=== PATIENT | female | born 1990 | race Two or more races ===

== ENCOUNTER 2016-11-06 08:39 | Emergency (ER) | payer OTHER ==
[~2016-11-06] VITALS: Ht 172.7 cm; Wt 77.1 kg
--- NOTE | 2016-11-06 09:00 | NUR ---
PT BIB FROM [facility] FOR ABD PAIN/ CRAMPS, 5 MONTHS - WITH NAUSEA. NOTED ANXIOUS. VSS. SEEN BY MD FOR EVAL. SAFETY AND COMFORT MEASURES PROVIDED. WILL MONITOR.
[2016-11-06] MEDS ORDERED: ONDANSETRON 4 MG TAB.RAPDIS ONE (10:01)
[2016-11-06] MEDS: ONDANSETRON 4 MG TAB.RAPDIS SL ONE (10:06)
[2016-11-06 10:11] LABS: BASOPHILS # (AUTO) 0.1 /CMM (0.0-0.2); BASOPHILS % (AUTO) 0.5 % (0.0-2.0); EOSINOPHILS # (AUTO) 0.1 /CMM (0.0-0.7); EOSINOPHILS % (AUTO) 0.7 % (0.0-6.0); HEMATOCRIT 29 % (33-45); HEMOGLOBIN 10.4 g/dL (11.5-14.8); LYMPHOCYTES # (AUTO) 1.4 /CMM (0.8-4.8); LYMPHOCYTES % (AUTO) 12.5 % (20.0-44.0); MEAN CORPUSCULAR HEMOGLOBIN 30 PG (26.0-33.0); MEAN CORPUSCULAR HGB CONC 35 g/dl (31.0-36.0); MEAN CORPUSCULAR VOLUME 86 fL (82-100); MONOCYTES # (AUTO) 0.7 /CMM (0.1-1.30); NEUTROPHILS % (AUTO) 80.3 % (43.0-81.0); PLATELET COUNT (AUTO) 269 /CMM (150-450); RDW COEFFICIENT OF VARIATION 13.9 (11.5-15.0); RED BLOOD CELL COUNT(AUTO) 3.42 MIL/uL (4.0-5.2); WHITE BLOOD COUNT (AUTO) 11.3 K/uL (4.3-11.0)
--- NOTE | 2016-11-06 10:15 | NUR ---
UNABLE TO GET IV ACCESS. MADE AWARE.
[2016-11-06] MEDS ORDERED: ONDANSETRON HCL/PF 4 MG/2 ML VIAL ONE (10:20)
[2016-11-06] MEDS ORDERED: IV SET PRIMARY 1 EA INFUS.SET MC ONE (10:20)
[2016-11-06] MEDS ORDERED: clonazePAM 1 MG TABLET ONE (10:20)
[2016-11-06] MEDS ORDERED: IV NS 0.9% 1,000 ML ONE (10:21)
[2016-11-06 10:25] LABS: INR 0.94 (0.87-1.13); PROTHROMBIN TIME 9.8 SECS (9.5-12.7)
[2016-11-06 10:26] LABS: APPEARANCE,URINE Clear (CLEAR); BLOOD, URINE Negative Ery/uL (NEGATIVE); COLOR,URINE Yellow (YELLOW); KETONES,URINE 40 (NEGATIVE); LEUKOCYTE ESTERASE ,URINE Negative (NEGATIVE); NITRITE, URINE Negative (NEGATIVE); PROTEIN,URINE 30 mg/dl (NEGATIVE); UGLUCOSE Negative (NEGATIVE)
[2016-11-06 10:32] LABS: BILIRUBIN,URINE SMALL (NEGATIVE)
--- NOTE | 2016-11-06 10:33 | NUR ---
DR ANGELICA MORIN
[2016-11-06 10:38] LABS: ADD URINE CULTURE YES; BACTERIA,URINE 2+ /HPF (None Seen); RBC,URINE 0-2 /HPF (0-2); SQUAMOUS EPITHELIAL CELL,UR Moderate /HPF (None Seen)
[2016-11-06] MEDS: clonazePAM 1 MG TABLET PO ONE (10:42)
[2016-11-06] MEDS: IV NS 0.9% 1,000 ML BAG IV ONE (11:13)
[2016-11-06] MEDS: ONDANSETRON HCL/PF 4 MG/2 ML VIAL IVP ONE (11:13)
--- NOTE | 2016-11-06 11:16 | NUR ---
Patient does not wish to proceed with medical care recommended by . Patient given information related to possible complications, up to and including , which could occur as a result of leaving the hospital at this time. Patient verbalizes understanding of risks involved due to leaving against medical advice. Patient has signed AMA form.
[2016-11-06 11:18] VITALS: BP 118/78
== END 2016-11-06 11:24 | disposition left against medical advice (07) ==
LOC: ER 08:40
DX: O99.342 Other mental disorders complicating pregnancy, second trimester (principal); F11.23 Opioid dependence with withdrawal; R00.0 Tachycardia, unspecified; R10.84 Generalized abdominal pain; J45.909 Unspecified asthma, uncomplicated; Z88.0 Allergy status to penicillin; Z3A.22 22 weeks gestation of pregnancy
CPT/HCPCS: 36415; 76805-TC; 81000-TC; 84702-TC; 85025-TC; 85730-TC; 87086-TC; 87186-TC; A4606; J2405; J7030; Q0162; Z7610

== ENCOUNTER 2023-05-28 23:59 | Emergency (ER) | payer OTHER ==
[~2023-05-28] VITALS: Ht 165.1 cm; Wt 102.1 kg
[2023-05-29] MEDS ORDERED: CLIN150C16 PO (00:35)
[2023-05-29] MEDS ORDERED: CLIN300C12 PO (00:35)
[2023-05-29] MEDS ORDERED: CLINDAMYCIN HCL 150 MG CAPSULE ONE (00:40)
[2023-05-29] MEDS: CLINDAMYCIN HCL 150 MG CAPSULE PO ONE ×2 (00:57)
[2023-05-29 01:01] VITALS: BP 121/71; TEMP 98.5; O2SAT 99
== END 2023-05-29 01:02 ==
LOC: ER 05-29 00:04
DX: L02.415 Cutaneous abscess of right lower limb (principal); Z79.899 Other long term (current) drug therapy; J45.909 Unspecified asthma, uncomplicated; Z88.0 Allergy status to penicillin